=== PATIENT | male | born 1970 | race Caucasian/White ===

== ENCOUNTER → 2025-02-03 | Outpatient (CLI) | payer MEDICAID | END | disposition home or self-care (01) | LOC: WOUNDCARE 13:27 | PROVIDERS: ATTEND Nurse Practitioner Family | DX: L02.31 Cutaneous abscess of buttock (principal); L98.412 Non-pressure chronic ulcer of buttock with fat layer exposed; F17.200 Nicotine dependence, unspecified, uncomplicated ==